=== PATIENT | male | born 1945 ===

== ENCOUNTER 2018-12-31 13:05 | Outpatient (CLI) | payer OTHER | END 2018-12-31 23:59 | disposition home or self-care (01) | LOC: CARD DIAG 13:05 | PROVIDERS: ATTEND Internal Medicine Critical Care Medicine | DX: J96.90 Respiratory failure, unspecified, unspecified whether with hypoxia or hypercapnia (principal); I08.0 Rheumatic disorders of both mitral and aortic valves | CPT/HCPCS: 93306 ==